=== PATIENT | female | born 1995 | race Two or more races ===

== ENCOUNTER 2017-04-26 11:02 | Emergency (ER) | payer OTHER ==
[~2017-04-26] VITALS: Ht 177.8 cm; Wt 83.9 kg
[2017-04-26 11:25] VITALS: BP 144/85
[2017-04-26] MEDS ORDERED: CARISOPRODOL 350 MG TAB PO ONE (14:15)
[2017-04-26] MEDS ORDERED: CARISOPRODOL 350 MG TAB ONE (14:18)
== END 2017-04-26 14:53 | disposition home or self-care (01) ==
LOC: ER 11:02
DX: M26.602 Left temporomandibular joint disorder, unspecified (principal)
CPT/HCPCS: 70110

== ENCOUNTER 2024-01-27 17:34 | Inpatient (IN) | payer MEDICAID, OTHER ==
[~2024-01-27] VITALS: Ht 180.3 cm; Wt 134.0 kg
[2024-01-27 18:58] LABS: Urine Bacteria None Seen /hpf (None Seen)
[2024-01-27 19:00] LABS: Basophils # (auto) 0.1 10 ^3/uL (0-0.2); Eosinophils # (auto) 0.2 10 ^3/uL (0-0.8); Hematocrit 43.7 % (36.0-46.0); Hemoglobin 14.7 g/dL (12.2-16.2); Lymphocytes # (auto) 2.1 10 ^3/uL (0.4-5.4); Lymphocytes % (auto) 28.4 % (10.0-50.0); Mean Corpuscular Hemoglobin 31.5 pg (28.0-32.0); Mean Corpuscular Hgb Conc. 33.6 g/dL (32.0-36.0); Mean Corpuscular Volume 93.7 fL (80.0-100.0); Monocytes # (auto) 0.9 10 ^3/uL (0-1.3); Monocytes % (auto) 11.8 % (0.0-12.0); Neutrophils # (auto) 4.1 10 ^3/uL (1.6-8.6); Neutrophils % (auto) 55.8 % (37.0-80.0); Nucleated Red Blood Cells % 0.1 %; Platelet Count (auto) 323 10^3/uL (140-450); Red Blood Cells 4.67 10^6/uL (4.0-5.20); Red Cell Distribution Width 13.6 % (11.8-14.3); White Blood Cell 7.3 10^3/uL (4.4-10.8)
--- NOTE | 2024-01-27 19:02 | ED.PDOC ---
GI ASSESSMENT HPI Comments 28y F who presents to the ED for chief complaint of abdominal pain. Pt states she has history of gallstones for the past 1 year and states she has been trying to get surgical consult for gallbladder removal but states she has been having difficulty getting clearance to get per- op EKG done. Pt states she has tried to get EKG done but PCP states she has no appointments and pt could not get any appointments and came to the ED as a last resort. Pt states although she has been having pain to the RUQ for the past 1 year but states the pain has become severe for the past 1 week. Pt rates the pain 10/10, constant, sharp in nature,non-radiating with associated exacerbation of pain after eating and no relieving factors. Pt has associated nausea but denies vomiting, diarrhea, fever, cough, chills, dysuria, hematuria or hematemesis. Pt otherwise denies any other symptoms at this time. Chief Complaint: Abdominal Pain Time Seen by MD: 19:00 Primary Care Provider: FADI Zamora Notes: Medications, Allergies Allergies: Coded Allergies: NO KNOWN ALLERGIES (Unverified , 10/27/15) Information Source: Patient Mode of Arrival: Ambulatory Brought in by: self Past Medical History PAST MEDICAL HISTORY: Denies Surgical History: Denies all surgeries CERTIFIED APPLIANCE SERVICE TECHNICIAN History: No Pertinent CERTIFIED APPLIANCE SERVICE TECHNICIAN History Family History Family History: Unknown Social History Smoker: Non-Smoker Alcohol: Denies ETOH Use Drugs: Denies Drug Use Lives In: Home Constitutional: denies: chills, diaphoresis, fatigue, fever, malaise, sweats, weakness, others EENTM: denies: blurred vision, double vision, ear bleeding, ear discharge, ear drainage, ear pain, ear ringing, eye pain, eye redness, hearing loss, mouth pain , mouth swelling, nasal discharge, nose bleeding, nose congestion, nose pain, photophobia, tearing, throat pain, throat swelling, voice changes, others Respiratory: denies: cough, hemoptysis, orthopnea, SOB at rest, shortness of breath, SOB with excertion, stridor, wheezing, others Cardiovascular: denies: chest pain, dizzy spells, diaphoresis, Dyspnea on exertion, edema, irregular heart beat, left arm pain, lightheadedness, palpitations, PND, syncope, others Gastrointestinal: reports: abdominal pain, nausea; denies: abdomen distended, blood streaked bowels, constipated, diarrhea, dysphagia, difficulty swallowing, hematemesis, melena, poor appetite, poor fluid intake, rectal bleeding, rectal pain, vomiting, others Genitourinary: denies: abnormal vagina bleeding, burning, dyspareunia, dysuria, flank pain, frequency, hematuria, incontinence, pain, , vagina discharge, urgency, others Neurological: denies: dizziness, fainting, headache, left sided numbness, left sided weakness, numbness, paresthesia, pre-existing deficit, right sided numbness, right sided weakness, seizure, speech problems, tingling, tremors, weakness, others Musculoskeletal: denies: back pain, gout, joint pain, joint swelling, muscle pain, muscle stiffness, neck pain, others Integumetry: denies: bruises, change in color, change in hair/nails, dryness, laceration, lesions, lumps, rash, wounds, others Allergic/Immunocompromised: denies: Difficulty Healing, Frequent Infections, Hives, Itching, others Hematologic/Lymphatic: denies: anemia, blood clots, easy bleeding, easy bruising, swollen glands, others Endocrine: denies: excessive hunger, excessive sweating, excessive thirst, excessive urination, flushing, intolerance to cold, intolerance to heat, unexplained weight gain, unexplained weight loss, others Psychiatric: denies: anxiety, bipolar disorder, depression, hopeless, panic disorder, schizophrenia, sleepless, suicidal, others All Other Systems: Reviewed and Negative Physical Exam General Appearance: Moderate Distress HEENT: Normal ENT Inspection, Pharynx Normal, TMs Normal Neck: Full Range of Motion, Non-Tender, Normal, Normal Inspection Respiratory: Chest Non-Tender, Lungs Clear, No Accessory Muscle Use, No Respiratory Distress, Normal Breath Sounds Cardiovascular: No Edema, No JVD, No Murmur, No Gallop, Normal Peripheral Pulses, Regular Rate/Rhythm Breast Exam: Deferred Gastrointestinal: Diffuse, Soft Genitalia: Deferred Pelvic: Deferred Rectal: Deferred Extremities: No calf tenderness, Normal capillary refill, Normal inspection, Normal range of motion, Non-tender, No pedal edema Musculoskeletal : Apperance: Normal Neurologic: Alert, fire chief deputy II-XII nml as Tested, No Motor Deficits, Normal Affect, Normal Mood, No Sensory Deficits Cerebellar Function: Normal Reflexes: Normal Skin: Dry, Normal Color, Warm Peripheral Pulses: 3+ Radial (R), 3+ Radial (L) Lymphatic: No Adenopathy Was a procedure done? Was a procedure done?: No GI differential Dx Differential Diagnosis: Cholecystitis, Constipation, Diverticular disease, Esophagitis, Gastritis/PUD, Gastroenteritis, Pancreatitis, UTI, Dehydration, Bacterial, Viral, Stress Ulcer, Kidney Stone X-Ray, Labs, Meds, VS Vital Signs Date Time Temp Pulse Resp B/P (MAP) Pulse Ox O2 Delivery O2 Flow Rate FiO2 01/27/24 18:00 98.6 86 18 126/65 (85) 96 Lab Test 01/27/24 18:37 01/27/24 18:19 Range/Units White Blood Count 7.3 4.4-10.8 10^3/uL Red Blood Count 4.67 4.0-5.20 10^6/uL Hemoglobin 14.7 12.2-16.2 g/dL Hematocrit 43.7 36.0-46.0 % Mean Corpuscular Volume 93.7 80.0-100.0 fL Mean Corpuscular Hemoglobin 31.5 28.0-32.0 pg Mean Corpuscular Hemoglobin Concent 33.6 32.0-36.0 g/dL Red Cell Distribution Width 13.6 11.8-14.3 % Platelet Count 323 140-450 10^3/uL Mean Platelet Volume 8.7 6.9-10.8 fL Neutrophils (%) (Auto) 55.8 37.0-80.0 % Lymphocytes (%) (Auto) 28.4 10.0-50.0 % Monocytes (%) (Auto) 11.8 0.0-12.0 % Eosinophils (%) (Auto) 3.0 0.0-7.0 % Basophils (%) (Auto) 1.0 0.0-2.0 % Neutrophils # (Auto) 4.1 1.6-8.6 10 ^3/uL Lymphocytes # (Auto) 2.1 0.4-5.4 10 ^3/uL Monocytes # (Auto) 0.9 0-1.3 10 ^3/uL Eosinophils # (Auto) 0.2 0-0.8 10 ^3/uL Basophils # (Auto) 0.1 0-0.2 10 ^3/uL Nucleated Red Blood Cells 0.1 % Sodium Level 141 136-145 mmol/L Potassium Level 3.9 3.5-5.1 mmol/L Chloride Level 108 H 98-107 mmol/L Carbon Dioxide Level 27 20-31 mmol/L Anion Gap 6 5-15 Blood Urea Nitrogen 14 9-23 mg/dL Creatinine 0.81 0.550-1.02 mg/dL Glomerular Filtration Rate Calc 103 >90 mL/min BUN/Creatinine Ratio 17.3 10.0-20.0 Serum Glucose 105 74-106 mg/dL Calcium Level 9.7 8.7-10.4 mg/dL Beta HCG, Quantitative 0.3 L 1.5-4.2 mIU/mL Urine Color Yellow Yellow Urine Clarity Turbid H Clear Urine pH 6.0 5.0-9.0 Urine Specific [place] 1.025 1.001-1.035 Urine Protein Trace H Negative Urine Ketones Negative Negative Urine Blood Negative Negative /uL Urine Nitrite Negative Negative Urine Bilirubin Negative Negative Urine Urobilinogen Normal Negative mg/dL Urine Leukocyte Esterase Negative Negative /uL Urine RBC 6 0 - 4 /hpf Urine WBC 4 0 - 5 /hpf Urine Squamous Epithelial Cells Mod <5 /hpf Urine Bacteria None seen None Seen /hpf Urine Mucus Few None Seen Urine Glucose 1+ H Normal mg/dL ABDOMINAL ULTRASOUND IMPRESSION: 1. Contracted gallbladder. 2. No biliary ductal dilatation or acute cholecystitis. Patient alert. Complaining of abdominal pain after eating. History of gallstones. Vitals stable. Answering all questions. WBC within normal limits. Hemoglobin within normal limits. Possible acute cholecystitis. Ultrasound. Reviewed her history. Was given pain medication. Possibly will need HIDA scan. Explained to the patient. Time of 1ST Reevaluation: 19:30 Reevaluation 1ST: Unchanged Patient Education/Counseling: Diagnosis, Treatment Family Education/Counseling: No Family Present Departure 1 Departure Time of Disposition: 19:25 Impression: Primary Impression: Acute abdominal pain Additional Impression: Gallbladder disease Disposition: ADMITTED INPATIENT Admit to: Med Surg Condition: Guarded Critical Care Note Critical Care Time?: No Stability Stability form required: No Heart Score Heart Score: Heart Score Response (Comments) Value History N/A 0 EKG N/A 0 Age N/A 0 Risk Factors N/A 0 Troponin N/A 0 Total 0 I personally scribed for KENNETH CARMEN MD ([email or web address]) on 01/27/24 at 19:02. Electronically submitted by Walt Hughes ([facility] I personally scribed for KENNETH CARMEN MD ([email or web address]) on 01/27/24 at 19:57. Electronically submitted by Walt Hughes ([facility]). KENNETH CARMEN MD Jan 27, 2024 19:02
[2024-01-27 19:12] LABS: Chloride 108 mmol/L (98-107); Potassium 3.9 mmol/L (3.5-5.1); Sodium 141 mmol/L (136-145)
[2024-01-27 19:13] LABS: Anion Gap 6 (5-15); Calcium 9.7 mg/dL (8.7-10.4); Carbon Dioxide 27 mmol/L (20-31)
[2024-01-27 19:18] LABS: BUN/Creatinine Ratio 17.3 (10.0-20.0); Blood Urea Nitrogen 14 mg/dL (9-23); Glucose 105 mg/dL (74-106)
[2024-01-27 19:35] LABS: Urine Blood Negative /uL (Negative); Urine Clarity Turbid (Clear); Urine Color Yellow (Yellow); Urine Mucus FEW (None Seen); Urine Protein, UAD TRACE (Negative); Urine Specific Gravity 1.025 (1.001-1.035); Urine Urobilinogen Normal (Negative); Urine WBC 4 /hpf (0 - 5)
--- NOTE | 2024-01-27 19:46 | DVH ---
ABDOMINAL ULTRASOUND CLINICAL HISTORY: rosie TECHNIQUE: Multiple grayscale and color Doppler ultrasound images were obtained of the abdomen. WID: COMPARISON: Report from CT abdomen and pelvis dated 01/21/2024 FINDINGS: Liver and Biliary System: Homogeneous echotexture, normal size measuring 15.2 cm. No focal hepatic observations. No intrahepatic bile duct dilatation. The common bile duct are not well visualized due to overlying bowel gas. The gallbladder is contracted. Pancreas: Obscured Spleen: None Kidneys: The right kidney is 10.7 cm . No hydronephrosis, increased echogenicity, shadowing stone, or focal lesion. IMPRESSION: 1. Contracted gallbladder. 2. No biliary ductal dilatation or acute cholecystitis.
[2024-01-27] MEDS ORDERED: MORPHINE SULFATE INJ 2 MG/ml SYRG IV PRN (21:15)
[2024-01-27] MEDS ORDERED: ACETAMINOPHEN 325 MG TAB PO PRN (21:15)
[2024-01-27] MEDS ORDERED: NITROGLYCERIN 0.4 MG SL TAB SL PRN (21:15)
--- NOTE | 2024-01-27 21:16 | DVHHPRES ---
History of Present Illness Resident Creating Document: ISELA YOU RESIDENT History of Present Illness This is a 28-year-old female with past medical history of bipolar disorder presented to the ED with a chief complaint of right upper abdominal pain last 2 days prior to the prior to this admission. According to the patient the pain is colicky in nature ,7/10 radiate to the back aggravated after ingestion of fatty food and associated with nausea. She mentioned she has intermittent biliary colic for last 2 years and was diagnosed with cholelithiasis in [facility] and waiting for referral from the PCP to see the surgeon. Gallbladder ultrasound in the emergency revealed contracted gallbladder with no biliary dilatation and no sign of acute cholecystitis. PCP: Dr. Recio [place] meds: Divalproex sodium 500 mg , 2 tab daily Prazosin 5 mg 1 tab at HS Liparisdone 80 mg, 1 tab daily [place] 8 mg , 1 tab daily Bupropion SR 100mg, 1 tab daily Psych: Bipolar Past Medical History Bipolar Disorder Past Surgical History: None Family History No significant family history Smoke: No ALCOHOL: none Drugs: None Lives: with Family Review of Systems Constitutional: No: Fever, Chills, Sweats, Weakness, Malaise, Other Eyes: No: Pain, Vision change, Conjunctivae inflammation, Eyelid inflammation, Other, Redness ENT: No: Ear pain, Ear discharge, Nose pain, Nose discharge, Nose congestion, Mouth pain, Mouth swelling, Throat pain, Throat swelling, Other Respiratory: No: Cough, Dry, Shortness of breath, SOB with excertion, Wheezing, Hemoptysis, Pleuritic Pain, Sputum, Wheezing, Other Cardiovascular: No: Chest Pain, Palpitations, Orthopnea, Paroxysmal Noc. Dyspnea, Edema, Lt Headedness, Other Gastrointestinal: Nausea, Vomiting, Abdominal Pain; No: Diarrhea, Constipation, Melena, Hematochezia, Other Genitourinary: No Dysuria, No Frequency, No Incontinence, No Hematuria, No Retention, No Other Musculoskeletal: No: other, neck pain, shoulder pain, arm pain, back pain, hand pain, leg pain, foot pain Skin: No: Rash, Lesions, Jaundice, Bruising, Other Neurological: No: Weakness, Numbness, Incoordination, Change in speech, Confusion, Seizures, Other Allergies: Coded Allergies: NO KNOWN ALLERGIES (Unverified , 10/27/15) Medications Current Medications Medications Dose Ordered Sig/Rupesh Route Start Time Stop Time Status Last Admin Dose Admin Sodium Chloride 10 ml Q8HR IV 01/27/24 22:00 UNV Sodium Chloride 1,000 ml @ 120 mls/hr Q8H20M IV 01/27/24 21:15 UNV Acetaminophen 325 mg Q4HP PRN PO 01/27/24 21:15 UNV Ondansetron HCl 4 mg Q4HP PRN IV 01/27/24 21:15 UNV Morphine Sulfate 2 mg Q4HPRN PRN IV 01/27/24 21:15 UNV Nitroglycerin 0.4 mg Q5MINP PRN SL 01/27/24 21:15 UNV Morphine Sulfate 2 mg Q30M PRN IV 01/27/24 21:15 UNV Pantoprazole Sodium 40 mg DAILY IV 01/28/24 10:00 UNV Exam Vital Signs Vital Signs Date Time Temp Pulse Resp B/P (MAP) Pulse Ox O2 Delivery O2 Flow Rate FiO2 01/27/24 20:01 73 14 121/68 (85) 96 01/27/24 18:00 98.6 General Appearance: Alert, Oriented X3, Cooperative, mild distress, Other HEENT: Atraumatic, PERRLA, EOMI, Mucous membr. moist/pink, Other Respiratory: Clear to auscultation, Normal air movement, Other Cardiovascular: Regular rate, Normal S1, Normal S2, No murmurs, Other Abdominal: Normal bowel sounds, Soft, No hepatospenomegaly, No masses, Other (mild tenderness in the rt subcostal region, [place] sign negative) Extremities: No clubbing, No cyanosis, No edema, Normal pulses, No te nderness/swelling Skin: No rashes, No breakdown, No significant lesion Neuro: Normal gait, Normal speech, Strength at 5/5 X4 ext, Normal tone, Sensation intact, Other (Grossly intact cranial nerves) Psych/Mental Status: Mental status NL, Mood NL Labs/Xrays Labs Test 01/27/24 18:37 01/27/24 18:19 Range/Units White Blood Count 7.3 4.4-10.8 10^3/uL Red Blood Count 4.67 4.0-5.20 10^6/uL Hemoglobin 14.7 12.2-16.2 g/dL Hematocrit 43.7 36.0-46.0 % Mean Corpuscular Volume 93.7 80.0-100.0 fL Mean Corpuscular Hemoglobin 31.5 28.0-32.0 pg Mean Corpuscular Hemoglobin Concent 33.6 32.0-36.0 g/dL Red Cell Distribution Width 13.6 11.8-14.3 % Platelet Count 323 140-450 10^3/uL Mean Platelet Volume 8.7 6.9-10.8 fL Neutrophils (%) (Auto) 55.8 37.0-80.0 % Lymphocytes (%) (Auto) 28.4 10.0-50.0 % Monocytes (%) (Auto) 11.8 0.0-12.0 % Eosinophils (%) (Auto) 3.0 0.0-7.0 % Basophils (%) (Auto) 1.0 0.0-2.0 % Neutrophils # (Auto) 4.1 1.6-8.6 10 ^3/uL Lymphocytes # (Auto) 2.1 0.4-5.4 10 ^3/uL Monocytes # (Auto) 0.9 0-1.3 10 ^3/uL Eosinophils # (Auto) 0.2 0-0.8 10 ^3/uL Basophils # (Auto) 0.1 0-0.2 10 ^3/uL Nucleated Red Blood Cells 0.1 % Sodium Level 141 136-145 mmol/L Potassium Level 3.9 3.5-5.1 mmol/L Chloride Level 108 H 98-107 mmol/L Carbon Dioxide Level 27 20-31 mmol/L Anion Gap 6 5-15 Blood Urea Nitrogen 14 9-23 mg/dL Creatinine 0.81 0.550-1.02 mg/dL Glomerular Filtration Rate Calc 103 >90 mL/min BUN/Creatinine Ratio 17.3 10.0-20.0 Serum Glucose 105 74-106 mg/dL Calcium Level 9.7 8.7-10.4 mg/dL Beta HCG, Quantitative 0.3 L 1.5-4.2 mIU/mL Urine Color Yellow Yellow Urine Clarity Turbid H Clear Urine pH 6.0 5.0-9.0 Urine Specific [place] 1.025 1.001-1.035 Urine Protein Trace H Negative Urine Ketones Negative Negative Urine Blood Negative Negative /uL Urine Nitrite Negative Negative Urine Bilirubin Negative Negative Urine Urobilinogen Normal Negative mg/dL Urine Leukocyte Esterase Negative Negative /uL Urine RBC 6 0 - 4 /hpf Urine WBC 4 0 - 5 /hpf Urine Squamous Epithelial Cells Mod <5 /hpf Urine Bacteria None seen None Seen /hpf Urine Mucus Few None Seen Urine Glucose 1+ H Normal mg/dL Assessment/Plan Assessment/Plan Assessment and Plan: # Rt subcostal pain rule out acute cholecystitis - Complaining of intermittent biliary colic for last 2 years associated with nausea and few episodes of vomiting - ultrasound revealed contracted gallbladder with no biliary dilatation and no sign of acute cholecystitis - ordered HIDA scan and CMP - Started IV ceftriaxone 1 g daily and IV Flagyl 500 mg 8 hourly - patient is on clear liquid diet - IV normal saline at 120 mL/hour - Lipase is normal #Vitamin D deficiency - Vitamin D 61787 units Q 7D # Bipolar disorder - Continue home meds # Recent h/o of STD - Ordered hepatitis panel # PUD prophylaxis - Protonix 40 mg daily. Goal of care discussed with the patient for more than 17 minutes full code Plan of treatment discussed with Dr. Hahn Plan discussed with: Patient, Other My Orders Orders - ISELA YOU RESIDENT Procedure Category Date Status Time Admit ADMIT 01/27/24 Transmitted 21:09 Allergies CHRISTIANA 01/27/24 In Process 21:09 Code Status CODE 01/27/24 Transmitted 21:09 Sodium Chloride Lock PHA 01/27/24 Logged (Saline Lock Ns) 22:00 Sodium Chloride 0.9% PHA 01/27/24 Logged 21:15 Acetaminophen Tablet PHA 01/27/24 Logged (Tylenol Tablet) 21:15 Ondansetron Hcl PHA 01/27/24 Logged (Zofran) 21:15 Complete Blood Count LAB 01/28/24 Verified 04:00 Comprehensive LAB 01/28/24 Verified Metabolic Panel 04:00 Clear Liq Diet DIET 01/28/24 Transmitted Breakfast Morphine Sulfate PHA 01/27/24 Logged Injection 21:15 Nitroglycerin PHA 01/27/24 Logged Sublingual (Ntrostat 21:15 Morphine Sulfate PHA 01/27/24 Logged Injection 21:15 Oxygen By Nasal RT 01/27/24 Transmitted Cannula 21:09 Stat Ekg For Chest CHRISTIANA 01/27/24 In Process Pain 21:09 Notify Of Changes CHRISTIANA 01/27/24 In Process From Base 21:09 Molding Utility Worker For CHRISTIANA 01/27/24 In Process 24 Hours 21:09 Emergency Dysrhythmia CHRISTIANA 01/27/24 In Process Protocol 21:09 Rhythm Strips Once [facility] 01/27/24 In Process Every Shift 21:09 Pantoprazole PHA 01/28/24 Logged (Protonix) 10:00 Thyroid Stimulating LAB 01/27/24 Transmitted Hormone 21:14 Comprehensive LAB 01/27/24 Transmitted Hepatitis Panel 21:14 Vitamin B12 LAB 01/27/24 Transmitted 21:14 Vitamin D, 25-Hydroxy LAB 01/27/24 Transmitted 21:14 Date of Service: Jan 27, 2024 Billing Provider: ROSY HAHN MD Common Visit Codes: 72379-IUDIAII INP/OBS CARE (HIGH) ISELA YOU RESIDENT Jan 27, 2024 21:16 ROSY HAHN MD Jan 28, 2024 15:51
[2024-01-27] MEDS: SODIUM CHLOR 0.9% PF (SALINE LOCK) 10ML VIAL/SYR IV SCH (22:00)
[2024-01-27 23:15] VITALS: PULSE 71; RESP 13; O2SAT 98
[2024-01-27] MEDS: SODIUM CHLORIDE 0.9% 1,000 ML IV SCH (23:15)
[2024-01-27] MEDS: ONDANSETRON HCL 4 MG/2 ML VIAL IV PRN (23:16)
[2024-01-27] MEDS: MORPHINE SULFATE INJ 2 MG/ml SYRG IV PRN (23:17)
[2024-01-27] MEDS: cefTRIAXone 1GM/50ML D5W 50 ML IV ONE (23:53)
[2024-01-28] MEDS: metroNIDAZOLE 500MG/100ML 100 ML IV ONE (00:15)
[2024-01-28] MEDS: metroNIDAZOLE 500MG/100ML 100 ML IV SCH (05:30)
[2024-01-28 06:35] LABS: Basophils # (auto) 0.1 10 ^3/uL (0-0.2); Basophils % (auto) 1.1 % (0.0-2.0); Eosinophils # (auto) 0.3 10 ^3/uL (0-0.8); Eosinophils % (auto) 2.9 % (0.0-7.0); Hematocrit 42.1 % (36.0-46.0); Hemoglobin 14.3 g/dL (12.2-16.2); Lymphocytes % (auto) 32.2 % (10.0-50.0); Mean Corpuscular Hemoglobin 32.1 pg (28.0-32.0); Mean Corpuscular Hgb Conc. 33.9 g/dL (32.0-36.0); Mean Corpuscular Volume 94.7 fL (80.0-100.0); Monocytes # (auto) 0.8 10 ^3/uL (0-1.3); Neutrophils # (auto) 5.1 10 ^3/uL (1.6-8.6); Neutrophils % (auto) 54.8 % (37.0-80.0); Nucleated Red Blood Cells % 0.2 %; Platelet Count (auto) 324 10^3/uL (140-450); Red Blood Cells 4.45 10^6/uL (4.0-5.20); Red Cell Distribution Width 13.6 % (11.8-14.3); White Blood Cell 9.3 10^3/uL (4.4-10.8)
[2024-01-28 06:40] LABS: Alanine Aminotransferase 29 U/L (7-40); Alkaline Phosphatase 77 U/L (46-116); Anion Gap 4 (5-15); Aspartate Aminotransferase 24 U/L (13-40); BUN/Creatinine Ratio 16.2 (10.0-20.0); Bilirubin, Total 0.5 mg/dL (0.2-1.0); Blood Urea Nitrogen 11 mg/dL (9-23); Calcium 9.1 mg/dL (8.7-10.4); Carbon Dioxide 27 mmol/L (20-31); Chloride 109 mmol/L (98-107); Glucose 79 mg/dL (74-106); Potassium 4.2 mmol/L (3.5-5.1); Sodium 140 mmol/L (136-145); Total Protein 6.4 g/dL (5.7-8.2)
[2024-01-28 08:00] VITALS: PULSE 72; RESP 16; O2SAT 99
[2024-01-28] MEDS: PANTOPRAZOLE 40 MG/10 ML VIAL INJ IV SCH (09:39)
[2024-01-28] MEDS: ERGOCALCIFEROL 50,000 UNIT(1.25MG) CAP PO SCH (09:39)
[2024-01-28] MEDS: cefTRIAXone 1GM/50ML D5W 50 ML IV SCH (09:40)
--- NOTE | 2024-01-28 10:28 | DVH ---
CT ABDOMEN AND PELVIS WITHOUT CONTRAST CLINICAL HISTORY: ruq pain TECHNIQUE: Multidetector CT of the abdomen was performed from lung bases to pubic symphysis. Imaging was performed without IV contrast. Axial, coronal and sagittal multiplanar reformats were obtained fr om the axial data set by the technologist. Radiation optimization: All CT scans at this facility use at least one of these dose optimization jarret hniques: automated exposure control mA and/or kV adjustment per patient size (includes targeted exam s where dose is matched to clinical indication) or iterative reconstruction. Radiation Dose Information: CT Dose: CTDI volume is 27.56 mGy. Dose-length product is 1446.7 mGy*cm Comparison: None FINDINGS: Evaluation of the solid abdominal viscera is limited without intravenous contrast. The liver, gallbladder, pancreas, kidneys, adrenal glands, and spleen appear within normal limits. There is no gross evidence of abdominal lymphadenopathy. There is no free fluid or free air. The small and large bowel loops demonstrate normal caliber and appear within normal limits. The abdominal aorta and IVC appear within normal limits. The bladder appears unremarkable. The uterus grossly appears unremarkable. There is no gross evidenc e of a pelvic mass or lymphadenopathy. There is no free fluid collection. Lung bases are clear. There is no acute osseous abnormality. IMPRESSION: 1. There is no acute process in the abdomen and pelvis.. HS:Y
[2024-01-28 12:03] LABS: Amphetamine Screen, Urine Neg (NEGATIVE); Barbiturate Scree,Urine Neg (NEGATIVE); Benzodiazephine Screen, Urine Neg (NEGATIVE); Cannabinoid Screen, Urine Neg (NEGATIVE); Cocaine Screen, Urine Neg (NEGATIVE); Opiate Scree,Urine Neg (NEGATIVE); Phencyclidine Screen, Urine Neg (NEGATIVE)
[2024-01-28 12:13] VITALS: BP 117/77; PULSE 68; RESP 18; TEMP 97.4; O2SAT 97
[2024-01-28 14:39] LABS: Hepatitis B Core Total AB Negative (Negative)
[2024-01-28 15:56] LABS: Hepatitis A Total Antibody Positive (Negative)
[2024-01-28 15:57] LABS: Hepatitis B Surface Antibody Negative (Negative); Hepatitis B Surface Antigen Negative (Negative); Hepatitis C Antibody Negative (Negative)
[2024-01-28 16:24] VITALS: BP 121/79; PULSE 77; RESP 16; TEMP 97.3; O2SAT 98
[2024-01-28 18:14] VITALS: BP 103/50; PULSE 75; RESP 19; TEMP 97.7; O2SAT 96
[2024-01-28] MEDS ORDERED: DOXYCYCLINE 100 MG TAB/CAP PO ONE (18:15)
[2024-01-28] MEDS: DOXYCYCLINE 100 MG TAB/CAP PO SCH (18:24)
[2024-01-28] MEDS ORDERED: PRAZ1CAP2 PO (18:32)
[2024-01-28] MEDS ORDERED: TRAZ-228 PO (18:32)
[2024-01-28] MEDS ORDERED: LORA-1120 PO (18:32)
[2024-01-28] MEDS ORDERED: DIVA-91 PO (18:32)
--- NOTE | 2024-01-28 19:16 | DVHPNRES ---
Progress Note Date Seen: Jan 28, 2024 Resident Creating Document: LOW PERERA Has the PT tested + for MRSA If YES, has PT been informed?: No Medical Necessity Reason Pt with a Central, PICC or Fol: No Subjective Review of Systems This is a 28-year-old female with past medical history of bipolar disorder presented to the ED with a chief complaint of right upper abdominal pain since 2 days prior to this admission. According to the patient the pain is colicky in nature ,7/10 radiate to the back aggravated after ingestion of fatty food and associated with nausea. She mentioned she has intermittent biliary colic for last 2 years and was diagnosed with cholelithiasis in [facility] and evaluated by surgeon, and recommended surgery (Dr. Disla). Patient also complains of vaginal discharge, since 2 months. Gallbladder ultrasound in the emergency revealed contracted gallbladder with no biliary dilatation and no sign of acute cholecystitis. Patient was admitted at the line of possible cholecystitis. PCP: Dr. Recio PMHx: Bipolar Disorder, STD 1 year back PSHx: None Family history: Noncontributory Social history: Lives at home with a grandparent. Denies smoking, ex marijuana user(quit 1 year back), denies alcohol use Home medication: Divalproex sodium 500 mg daily, Prazosin 5 mg HS, Liparisdone 80 mg daily, Rameleton 8 mg daily, Bupropion SR 100mg daily Allergic history: Noncontributory General: patient denies fever, fatigue, weaknes, sweating, any recent changes in appetite and weight HEENT: No headaches, visiual changes, hearing loss, tinnitus, nasal congestion and discharge, and sore throat. Cardiovascular: Denies chest pain, palpitations, dyspnea on exertion, orthopnea, or claudication. Respiratory: No cough, and wheezing. Gastrointestinal: Complained of abdominal pain Genitourinary: Reports vaginal discharge Endocrine: No heat or cold intolerance, polydipsia, polyuria, and polyphagia. Neurological: No dizziness, extremity weakness and numbness, tremors, gait disturbance, seizures, and memory impairment. Psychiatric: Denies depression, anxiety,or insomnia. Musculoskeletal: Denies neck pain, stiffness and swelling, back pain, muscle weakness, joint pain, stiffness, swelling, or limited range of motion. Skin: No rashes, itching, skin lesion, changes in hair, nail, skin texture and breast. Hematologic/Lymphatic: Denies easy bruising, bleeding tendencies, or lymph node enlargement. Patient seen and examined at the bedside. Patient complaining of right upper quadrant pain, still grade the pain 7/10. CT abdominopelvic done, shows no abnormalities. HIDA scan was advised. Patient reports: No new complaints Changes from previous H/P or p: No Changes Objective vital signs Vital Sign Date Time Temp Pulse Resp B/P (MAP) Pulse Ox O2 Delivery O2 Flow Rate FiO2 01/28/24 16:24 97.3 77 16 121/79 (93) 98 97.3 01/28/24 08:00 Room Air* 0 21 Total Intake and Output 01/27/24 01/27/24 01/28/24 15:00 23:00 07:00 Intake Total 970 ml Balance 970 ml medications Current Medications Medications Dose Ordered Sig/Rupesh Route Start Time Stop Time Status Last Admin Dose Admin Sodium Chloride 10 ml Q8HR IV 01/27/24 22:00 01/28/24 14:15 10 ML Sodium Chloride 1,000 ml @ 120 mls/hr Q8H20M IV 01/27/24 21:15 01/28/24 14:35 120 MLS/HR Acetaminophen 325 mg Q4HP PRN PO 01/27/24 21:15 Ondansetron HCl 4 mg Q4HP PRN IV 01/27/24 21:15 01/28/24 04:40 4 MG Morphine Sulfate 2 mg Q4HPRN PRN IV 01/27/24 21:15 01/28/24 04:41 2 MG Nitroglycerin 0.4 mg Q5MINP PRN SL 01/27/24 21:15 Morphine Sulfate 2 mg Q30M PRN IV 01/27/24 21:15 Pantoprazole Sodium 40 mg DAILY IV 01/28/24 10:00 01/28/24 09:39 40 MG Ceftriaxone Sodium 50 ml @ 100 mls/hr DAILY@09 IV 01/28/24 09:00 01/28/24 09:40 100 MLS/HR Metronidazole 100 ml @ 100 mls/hr Q8HR IV 01/28/24 06:00 01/28/24 14:36 100 MLS/HR Ergocalciferol 50,000 unit Q7D PO 01/28/24 10:00 Doxycycline Monohydrate 100 mg Q12H PO 01/28/24 18:17 01/28/24 18:24 100 MG Examination General Appearance: A young female, lying on the bed with mild distress, alert, oriented and cooperative HEENT: Atraumatic, PERRLA, EOMI, Mucous membrane moist/pink Respiratory: Clear to auscultation, Normal air movement Cardiovascular: Regular rate, Normal S1, Normal S2, No murmurs, no chest wall tenderness Abdominal: Epigastric and right upper quadrant tenderness, positive Villanueva sign Extremities: No clubbing, No cyanosis, No edema, Normal pulses, No tenderness/swelling Skin: No rashes, No breakdown, No significant lesion Neuro: Normal gait, Normal speech, Strength at 5/5 X4 ext, Normal tone, Sensation intact, Cranial nerves 3-12 NL, Reflexes 2+ Psych/Mental Status: Mental status NL, Mood NL Examination: GENERAL:Normal, HEENT:Normal, NECK:Normal, LUNGS:Normal, CVS:Normal, ABDOMEN:Abnormal, MSK:Normal, SKIN:Normal, NEURO:Normal, :Normal laboratory and microbiology Laboratory Tests 01/28/24 05:17 Test 01/28/24 05:17 Range/Units Serum Glucose 79 74-106 mg/dL Labs and/or images reviewed: Labs reviewed by me, Image(s) reviewed by me Problem List/Assessment/Plan Problem List/Assessment/Plan Rt subcostal pain rule out acute cholecystitis - ultrasound revealed contracted gallbladder with no biliary dilatation and no sign of acute cholecystitis -CT abdominopelvic, normal - HIDA scan - continue ceftriaxone and Flagyl ?STI, cervicitis Check chlamydia and gonorrhea Start ceftriaxone, doxycycline, metronidazole UTI, unspecified location Continue ceftriaxone #Vitamin D deficiency - Vitamin D 02517 units Q 7D # Bipolar disorder - Continue home meds # PUD prophylaxis - Protonix 40 mg daily. Hyperchloremia Monitoring DVT prophylaxis Anticoagulant not indicated, ambulating Code status Full code Plan of treatment discussed with Dr. Hahn Plan discussed with: Patient (RN) Date of Service: Jan 28, 2024 Billing Provider: ROSY HAHN MD Common Visit Codes: [id number] INP/OBS CARE(MOD) LOW PERERA RESDIENT Jan 28, 2024 19:16 ROSY HAHN MD Jan 29, 2024 09:36
[2024-01-28 20:00] VITALS: PULSE 75; RESP 19
[2024-01-28 21:00] VITALS: BP 103/50; PULSE 75; RESP 19; TEMP 97.7; O2SAT 96
[2024-01-29 05:41] VITALS: BP 96/43; PULSE 91; RESP 19; TEMP 97.3; O2SAT 94
[2024-01-29 07:00] VITALS: PULSE 62; RESP 16; O2SAT 95
[2024-01-29 08:00] VITALS: PULSE 62; RESP 16; O2SAT 95
[2024-01-29 09:00] VITALS: BP 99/54; PULSE 62; RESP 16; TEMP 97.7; O2SAT 95
[2024-01-29 12:38] VITALS: BP 120/70; PULSE 90; RESP 16; TEMP 97.6; O2SAT 94
[2024-01-29] MEDS ORDERED: DOX100T PO (13:49)
[2024-01-29 14:37] VITALS: BP 120/70; PULSE 90; RESP 16; TEMP 97.1; O2SAT 94
--- NOTE | 2024-01-29 15:08 | DVH ---
EXAM: NM NM HIDA SCAN History: To rule out cholecystitis Comparison Study: None TECHNIQUE: Following intravenous administration of 7.2 mCi of Tc-99m mebrofenin (Choletec), dynamic sequential images of the right upper abdomen were acquired for 60 minutes. An additional planar image in the lateral right upper quadrant was also obtained. FINDINGS: The liver demonstrates prompt radiotracer uptake with clearance from blood pool. No focal perfusion d efects were noted. There was prompt excretion of the radiotracer into the biliary tree, without evide nce of biliary dilatation or obstruction. Partial filling of the gallbladder at 32/33 minutes post radiotracer administration. At 60 minutes, t he gallbladder remains partially filled. IMPRESSION: 1. No definite evidence for acute cholecystitis.
[2024-01-29] MEDS ORDERED: PRAZOSIN HCL 1 MG CAP PO SCH (18:00)
--- NOTE | 2024-01-29 19:42 | DVHDSRES ---
Discharge Summary Date of Admission Resident Creating Document: LOW PERERA RESDIENT Jan 27, 2024 at 21:09 Date of Discharge: Jan 29, 2024 Admitting Diagnosis Right subcostal pain, to rule out acute cholecystitis Labs/Diagnostic Data: Laboratory Results Test 01/28/24 05:17 01/27/24 18:37 01/27/24 18:19 White Blood Count 9.3 10^3/uL (4.4-10.8) Red Blood Count 4.45 10^6/uL (4.0-5.20) Hemoglobin 14.3 g/dL (12.2-16.2) Hematocrit 42.1 % (36.0-46.0) Mean Corpuscular Volume 94.7 fL (80.0-100.0) Mean Corpuscular Hemoglobin 32.1 pg (28.0-32.0) Mean Corpuscular Hemoglobin Concent 33.9 g/dL (32.0-36.0) Red Cell Distribution Width 13.6 % (11.8-14.3) Platelet Count 324 10^3/uL (140-450) Mean Platelet Volume 8.6 fL (6.9-10.8) Neutrophils (%) (Auto) 54.8 % (37.0-80.0) Lymphocytes (%) (Auto) 32.2 % (10.0-50.0) Monocytes (%) (Auto) 9.0 % (0.0-12.0) Eosinophils (%) (Auto) 2.9 % (0.0-7.0) Basophils (%) (Auto) 1.1 % (0.0-2.0) Neutrophils # (Auto) 5.1 10 ^3/uL (1.6-8.6) Lymphocytes # (Auto) 3.0 10 ^3/uL (0.4-5.4) Monocytes # (Auto) 0.8 10 ^3/uL (0-1.3) Eosinophils # (Auto) 0.3 10 ^3/uL (0-0.8) Basophils # (Auto) 0.1 10 ^3/uL (0-0.2) Nucleated Red Blood Cells 0.2 % Sodium Level 140 mmol/L (136-145) Potassium Level 4.2 mmol/L (3.5-5.1) Chloride Level 109 mmol/L (98-107) Carbon Dioxide Level 27 mmol/L (20-31) Anion Gap 4 (5-15) Blood Urea Nitrogen 11 mg/dL (9-23) Creatinine 0.68 mg/dL (0.550-1.02) Glomerular Filtration Rate Calc 123 mL/min (>90) BUN/Creatinine Ratio 16.2 (10.0-20.0) Serum Glucose 79 mg/dL (74-106) Calcium Level 9.1 mg/dL (8.7-10.4) Total Bilirubin 0.5 mg/dL (0.2-1.0) Aspartate Amino Transferase (AST) 24 U/L (13-40) Alanine Aminotransferase (ALT) 29 U/L (7-40) Alkaline Phosphatase 77 U/L (46-116) Total Protein 6.4 g/dL (5.7-8.2) Albumin 4.0 g/dL (3.2-4.8) Magnesium Level 1.9 mg/dL (1.6-2.6) Lipase 31 U/L (12-53) Vitamin B12 Level 469 pg/mL (211-911) Vitamin D 25-Hydroxy 26.9 ng/mL (30.0-100) Thyroid Stimulating Hormone (TSH) 4.04 uIU/mL (0.55-4.78) Beta HCG, Quantitative 0.3 mIU/mL (1.5-4.2) Hepatitis A Antibody Total Positive (Negative) Hepatitis B Surface Antigen Negative (Negative) Hepatitis B Surface Antibody Negative (Negative) Hepatitis B Core Total Antibody Negative (Negative) Hepatitis C Antibody Negative (Negative) Urine Color Yellow (Yellow) Urine Clarity Turbid (Clear) Urine pH 6.0 (5.0-9.0) Urine Specific Dougherty 1.025 (1.001-1.035) Urine Protein Trace (Negative) Urine Ketones Negative (Negative) Urine Blood Negative /uL (Negative) Urine Nitrite Negative (Negative) Urine Bilirubin Negative (Negative) Urine Urobilinogen Normal mg/dL (Negative) Urine Leukocyte Esterase Negative /uL (Negative) Urine RBC 6 /hpf (0 - 4) Urine WBC 4 /hpf (0 - 5) Urine Squamous Epithelial Cells Mod /hpf (<5) Urine Bacteria None seen /hpf (None Seen) Urine Mucus Few (None Seen) Urine Glucose 1+ mg/dL (Normal) Urine Opiates Screen Neg (NEGATIVE) Urine Fentanyl Screen Neg (NEGATIVE) Urine Barbiturates Screen Neg (NEGATIVE) Urine Phencyclidine Screen Neg (NEGATIVE) Urine Amphetamines Screen Neg (NEGATIVE) Urine Benzodiazepines Screen Neg (NEGATIVE) Urine Cocaine Screen Neg (NEGATIVE) Urine Cannabinoids Screen Neg (NEGATIVE) Other Laboratory Tests 01/28/24 05:17 Brief Hx & Hospital Course: This is a 28-year-old female with a past medical history of bipolar disorder who presented to the ED with a chief complaint of right upper abdominal pain for 2 days prior to this admission. According to the patient, the pain is colicky in nature, rated 7/10, radiates to the back, is aggravated after ingestion of fatty food, and is associated with nausea. She mentioned she has had intermittent biliary colic for the last 2 years and was diagnosed with cholelithiasis at [facility], evaluated by a surgeon, and recommended for surgery (Dr. Disla). The patient also complains of vaginal discharge for the past 2 months. A gallbladder ultrasound in the emergency department revealed a contracted gallbladder with no biliary dilatation and no signs of acute cholecystitis. The patient was admitted for possible cholecystitis. PCP: Dr. Recio PMHx: Bipolar disorder, STD 1 year ago PSHx: None Family history: Noncontributory Social history: Lives at home with a grandparent. Denies smoking, ex-marijuana user (quit 1 year ago), denies alcohol use. Home medication: Divalproex sodium 500 mg daily, Prazosin 5 mg HS, Lurasidone 80 mg daily, Ramelteon 8 mg daily, Bupropion SR 100 mg daily Allergic history: Noncontributory An abdominal ultrasound showed a contracted gallbladder with no biliary ductal dilatation or acute cholecystitis. An abdominal CT scan showed no acute process in the abdomen and pelvis. A HIDA scan also showed no definite evidence of acute cholecystitis. On 01/29/2024, the patient was hemodynamically and medically stable. The patient was feeling better since admission and had no active complaints. Discharge planning was discussed with the patient, and she was recommended to follow up with the PCP within 1 week for renal panel evaluation and vaginal discharge. Condition at Discharge: Good Final Diagnosis/Problems List Intractable abdominal pain History of gallbladder stone Ruled out Cholecystitis STI, cervicitis UTI, unspecified location Vitamin D deficiency Bipolar disorder Hyperchloremia Discharge Disposition: Home Discharge Instruct/Medications Diet: Cardiac 2g Na,low cholest Activity: No Restrictions, As Tolerated Follow Up/Referral: Follow up with the PCP within 1 week after discharge Medications: Continue home medication Discharge Statement: "Patient was advised to return to the ER or call 911 if any headaches, dizziness, shortness of breath, chest pain, abdominal pain, bleeding, fevers, or worsening of medical condition. Patient was counseled about treatment plan, medications, possible side effects, patientverbalized understanding. All questions were answered to the best of my ability. This discharge took greater then 30 minutes in planning, reviewing documentation, counseling the patient, and discussing with other team members." ASSESSMENT ASSESSMENT Assessment Intractable abdominal pain Ruled out cholecystitis Date of Service: Jan 29, 2024 Billing Provider: REE CAMPBELL MD Common Visit Codes: 45486-UXN/OBS DISCH DAY >30min DILMAEMILOUIS RESDIENT Jan 29, 2024 19:42 REE CAMPBELL MD Jan 30, 2024 20:45
[2024-01-29] MEDS ORDERED: LORazepam 0.5 MG TAB PO SCH (22:00)
[2024-01-29] MEDS ORDERED: DIVALPROEX SODIUM 500 MG PO SCH (22:00)
[2024-01-29] MEDS ORDERED: traZODone HCL 50 MG TAB PO SCH (22:00)
== END 2024-01-29 16:08 | disposition home or self-care (01) | DRG 463 ==
LOC: ER 17:34 → OVERFLOW 21:09 → EAST 01-28 18:44
PROVIDERS: ADMIT Hospitalist; ATTEND Hospitalist
DX: N39.0 Urinary tract infection, site not specified (principal); E87.8 Other disorders of electrolyte and fluid balance, not elsewhere classified; A64 Unspecified sexually transmitted disease; K82.9 Disease of gallbladder, unspecified; F31.9 Bipolar disorder, unspecified; E55.9 Vitamin D deficiency, unspecified; N72 Inflammatory disease of cervix uteri; Z79.899 Other long term (current) drug therapy
CPT/HCPCS: 36415; 74176; 76705; 78226; 80048; 80053; 80307; 81001; 82306; 82607; 83690; 83735; 84443; 84702; 85025; 86704; 86706; 86708; 86803; 87340; G0378; J2405; J2470; J3490

== ENCOUNTER 2024-09-27 11:58 | Emergency (ER) | payer MEDICAID ==
[~2024-09-27] VITALS: Ht 180.3 cm; Wt 136.5 kg
[~2024-09-27 11:58] MED LIST: DIVA-91 PO; DOX100T PO; LORA-1120 PO; PRAZ1CAP2 PO; TRAZ-228 PO
--- NOTE | 2024-09-27 13:00 | ED.PDOC ---
History of Present Illness HPI Comments 28-year-old female presents with a chief complaint of bilateral shoulder pain x 4 days. Patient states that her pain is localized to her posterior cervical region, bilaterally, describes as 10/13. Patient mentions that she went to Urgent Care yesterday and was prescribed muscle relaxers and ibuprofen which she states have not helped. Patient reports that the pain radiates down her bilateral arms and creates tingling in her fingers. Right shoulder pain & Left shoulder pain Started x 4 days ago Location bilaterally Radiation down arms bilaterally worsening factors: Movement Range of motion restricted Therapy discharge Denies fevers chills night sweats nausea vomiting redness around the shoulder Denies previous surgeries to the shoulder or significant injury Denies changes, shortness of breath Chief Complaint: Back Pain Time Seen by MD: 12:45 Primary Care Provider: FADI Zamora Notes: Nurses Notes, Medications, Allergies Allergies: Coded Allergies: NO KNOWN ALLERGIES (Unverified , 10/27/15) Home Meds Active Scripts Doxycycline Monohydrate (Doxycycline Monohydrate) 100 Mg Tab, 100 MG PO Q12H for 5 Days, #10 TAB Prov:PEYMAN EDGE RESIDENT 01/29/24 Reported Medications Lorazepam (Lorazepam) 0.5 Mg Tab, 0.5 MG PO HS, TAB 01/28/24 Trazodone Hcl (Trazodone Hcl) 100 Mg Tab, 100 MG PO HS, MG 01/28/24 Prazosin Hcl (Minipres) 1 Mg Cp, 1 CAP PO QPM, #30 CAP 2 Refills 01/28/24 Divalproex Sodium (Depakote) 500 Mg Tab, 2 TAB PO HS, #60 TAB 2 Refills 01/28/24 Information Source: Patient Mode of Arrival: Ambulatory Severity: Moderate Timing: Days Duration: Since onset Prehospital treatment: None Past Medical History PAST MEDICAL HISTORY: Denies Surgical History: Denies all surgeries PHYSICAL PLANT MANAGER History: No Pertinent PHYSICAL PLANT MANAGER History Family History Family History: Unknown Social History Smoker: Non-Smoker Alcohol: Denies ETOH Use Drugs: Denies Drug Use Lives In: Home All Other Systems: Reviewed and Negative ( PER HPI) Physical Exam General Appearance: No Apparent Distress, Normal HEENT: Normal ENT Inspection, Pharynx Normal, TMs Normal, Other (Spurling test neg bilaterally) Neck: Full Range of Motion, Non-Tender, Normal, Normal Inspection Respiratory: Chest Non-Tender, Lungs Clear, No Accessory Muscle Use, No Respiratory Distress, Normal Breath Sounds Cardiovascular: No Murmur, No Gallop, Regular Rate/Rhythm Breast Exam: Deferred Gastrointestinal: No Organomegaly, Non Tender, No Pulsatile Mass, Normal Bowel Sounds, Soft Genitalia: Deferred Pelvic: Deferred Rectal: Deferred Extremities: No calf tenderness, Normal capillary refill, Normal inspection, Normal range of motion, Non-tender, No pedal edema Musculoskeletal : Location: Bilateral Extremity Location: Shoulder Apperance: Normal, Other (Bilateral Shoulders: No gross abnormality on inspection. No shoulder drop visible. No clavicular tenderness on palpation. Palpation tenderness to coracoid process and acromion process. No scapular, supraspinatus, infraspinatus tenderness to touch. Limited flexion passive movement due to pain. Pain with abduction. Apley test Positive) Neurologic: Alert, crester II-XII nml as Tested, No Motor Deficits, Normal Affect, Normal Mood, No Sensory Deficits Cerebellar Function: Normal Reflexes: Normal Skin: Dry, Normal Color, Warm Lymphatic: No Adenopathy Was a procedure done? Was a procedure done?: No Differential Dx Considerations may include: sprain, fracture, radiculopathy X-Ray, Labs, Meds, VS Vital Signs Date Time Temp Pulse Resp B/P (MAP) Pulse Ox O2 Delivery O2 Flow Rate FiO2 09/27/24 13:21 88 17 97 Room Air 09/27/24 13:21 98.7 101 16 124/88 (100) 98 98.7 09/27/24 12:40 97.7 113 17 119/86 (97) 95 97.7 Lab Test 09/27/24 13:15 Range/Units White Blood Count 6.9 4.4-10.8 10^3/uL Red Blood Count 4.80 4.0-5.20 10^6/uL Hemoglobin 14.9 12.2-16.2 g/dL Hematocrit 43.8 36.0-46.0 % Mean Corpuscular Volume 91.2 80.0-100.0 fL Mean Corpuscular Hemoglobin 31.1 28.0-32.0 pg Mean Corpuscular Hemoglobin Concent 34.1 32.0-36.0 g/dL Red Cell Distribution Width 14.5 H 11.8-14.3 % Platelet Count 340 140-450 10^3/uL Mean Platelet Volume 8.2 6.9-10.8 fL Neutrophils (%) (Auto) 55.9 37.0-80.0 % Lymphocytes (%) (Auto) 24.8 10.0-50.0 % Monocytes (%) (Auto) 11.4 0.0-12.0 % Eosinophils (%) (Auto) 6.9 0.0-7.0 % Basophils (%) (Auto) 1.0 0.0-2.0 % Neutrophils # (Auto) 3.8 1.6-8.6 10 ^3/uL Lymphocytes # (Auto) 1.7 0.4-5.4 10 ^3/uL Monocytes # (Auto) 0.8 0-1.3 10 ^3/uL Eosinophils # (Auto) 0.5 0-0.8 10 ^3/uL Basophils # (Auto) 0.1 0-0.2 10 ^3/uL Nucleated Red Blood Cells 0.3 % Sodium Level 141 136-145 mmol/L Potassium Level 4.1 3.5-5.1 mmol/L Chloride Level 107 98-107 mmol/L Carbon Dioxide Level 24 20-31 mmol/L Anion Gap 10 5-15 Blood Urea Nitrogen 5 L 9-23 mg/dL Creatinine 0.75 0.550-1.02 mg/dL Glomerular Filtration Rate Calc 113 >90 mL/min BUN/Creatinine Ratio 6.7 L 10.0-20.0 Serum Glucose 111 H 74-106 mg/dL Calcium Level 9.5 8.7-10.4 mg/dL Current Medications Medications (Trade) Dose Ordered Sig/Rupesh Route Start Time Stop Time Status Last Admin Ketorolac Tromethamine (Toradol Injection) 60 mg ONCE ONCE IM 09/27/24 13:00 09/27/24 13:01 DC 09/27/24 13:14 Methylprednisolone Sodium Succinate (Solu Medrol) 125 mg ONCE ONCE IM 09/27/24 13:00 09/27/24 13:01 DC 09/27/24 13:14 X-Ray, Labs, Meds, VS Comment Patient arrives alert and oriented, ABC's intact, afebrile, vital signs stable, saturating well in room air Labs were ordered. CBC was ordered to exclude anemia, blood loss, or infection. BMP was ordered to exclude electrolyte abnormalities, renal failure, dehydration, hyperglycemia Diagnostic imaging ordered by me and results interpreted by radiology : CERVICAL SPINE X-RAY No acute fracture or subluxation Patient was given: TORADOL AND SOLU-MEDROL IM. Tolerated medications with no adverse reaction. + neck pain radiating to bilateral upper extremities + sensation of numbness. ED Workup: Defer C-Spine imaging given negative by NEXUS criteria Given History, Exam the patient appears to have a cervical radiculopathy. Patient appears to be low risk for complications or other emergent conditions such as anginal equivalent, fernando cervical instability, arterial dissection, osteomyelitis, epidural abscess, central cord syndrome, c-spine fracture, CVA, other spinal emergencies Rx: NSAIDs, outpatient physical therapy evaluation and recommendation for home exercises in the interim Disposition: Discharge. The patient has been given strict return precautions and understands the need to follow up within 48 hours with their primary care provider Patient is stable for discharge at this time. External notes reviewed. Test results and diagnostic imaging interpreted. All diagnostic findings, discharge care, education and instructions provided Follow-up with PCP in 2 to 3 days Patient verbalized understanding and agreed to treatment plan Vital signs stable, afebrile, no acute distress noted Patient ambulatory with strong steady gait Advised to return precautions for any new or worsening symptoms, return to ER immediately for re-evaluation Patient is aware that the purpose of this visit was for an acute medical emergency requiring emergent stabilization. Chronic conditions, including malignancies have not been ruled out. Patient is instructed to follow up with PCP as directed and discharge instructions for continued care and workup. If unable to arrange follow-up, patient is to return to the emergency department for reassessment. Patient (parent or legal guardian if applicable) was given verbal and written discharge instructions and acknowledges understanding. Additional MDM Review of External, Non-ED records: External records reviewed. Discussion with independent historian (EMS, family) history obtained from the patient/parents (if applicable) at bedside Chronic conditions affecting care: None Social determinants of health affecting care: None Consideration of admission (observation or admission): I considered escalation of care to admission for this patient, however given the reassuring workup, the patient is safe for outpatient management. Time of 1ST Reevaluation: 13:15 Reevaluation 1ST: Unchanged Time of 2ND Reevaluation: 14:44 Patient Education/Counseling: Diagnosis, Treatment, Prognosis Family Education/Counseling: No Family Present SEPSIS Sepsis Screen Date sepsis recognized/suspect: Sep 27, 2024 Time Sepsis recognized/suspect: 1207 Recent Procedure: No On Antibiotic Therapy: No Respiratory Rate >20: No Heart Rate >90: Yes Temp<36 C (96.8 F) or >38.3 C: No SBP <90 or MAP <65 mmHG: No New Acute Mental Status Change: No Is the patient on CPAP, BIPAP,: No Physician Orders Cervical Spine 3v (09/27/24 12:53) Vital Signs Date Time Temp Pulse Resp B/P (MAP) Pulse Ox O2 Delivery O2 Flow Rate FiO2 09/27/24 13:21 88 17 97 Room Air 09/27/24 13:21 98.7 101 16 124/88 (100) 98 98.7 09/27/24 12:40 97.7 113 17 119/86 (97) 95 97.7 Laboratory Tests Test 09/27/24 13:15 White Blood Count 6.9 10^3/uL (4.4-10.8) Medications Medications Dose Ordered Sig/Rupesh Route Start Time Stop Time Status Last Admin Dose Admin Ketorolac Tromethamine 60 mg ONCE ONCE IM 09/27/24 13:00 09/27/24 13:01 DC 09/27/24 13:14 Methylprednisolone Sodium Succinate 125 mg ONCE ONCE IM 09/27/24 13:00 09/27/24 13:01 DC 09/27/24 13:14 Departure 1 Departure Time of Disposition: 14:45 Impression: Primary Impression: Cervical radiculopathy Disposition: HOME / SELF CARE / HOMELESS Condition: Fair e-Prescriptions Tramadol HCl (Tramadol HCl) 50 Mg Tab 50 MG PO Q8HP PRN for 5 Days, #15 TAB 0 Refills Prov: BRANDO LFORENCE LOG LOADER HELPER 09/27/24 Prednisone (Prednisone) 20 Mg Tab 60 MG PO DAILY for 5 Days, #15 TAB 0 Refills Prov: BRANDO FLORENCE LOG LOADER HELPER 09/27/24 Critical Care Note Critical Care Time?: No Stability Stability form required: No Heart Score Heart Score: Heart Score Response (Comments) Value History N/A 0 EKG N/A 0 Age N/A 0 Risk Factors N/A 0 Troponin N/A 0 Total 0 I personally scribed for BRANDO FLORENCE LOG LOADER HELPER ([email or web address]) on 09/27/24 at 13:00. Electro nically submitted by Lloyd Samson ([email or web address]). I personally scribed for BRANDO FLORENCE NP ([email or web address]) on 09/27/24 at 13:55. Electronically submitted by Lloyd Samson ([email or web address]). BRANDO FLORENCE NP Sep 27, 2024 13:00
[2024-09-27] MEDS: KETOROLAC TROMETH 60MG/2ML VIAL IM ONE (13:14)
[2024-09-27] MEDS: methylPREDNISolone SOD SUCC 125 MG/2 ML VL IM ONE (13:14)
[2024-09-27 13:21] VITALS: BP 124/88; PULSE 88; RESP 17; TEMP 98.7; O2SAT 97
[2024-09-27 13:31] LABS: Basophils # (auto) 0.1 10 ^3/uL (0-0.2); Eosinophils # (auto) 0.5 10 ^3/uL (0-0.8); Eosinophils % (auto) 6.9 % (0.0-7.0); Hematocrit 43.8 % (36.0-46.0); Hemoglobin 14.9 g/dL (12.2-16.2); Lymphocytes # (auto) 1.7 10 ^3/uL (0.4-5.4); Lymphocytes % (auto) 24.8 % (10.0-50.0); Mean Corpuscular Hemoglobin 31.1 pg (28.0-32.0); Mean Corpuscular Hgb Conc. 34.1 g/dL (32.0-36.0); Mean Corpuscular Volume 91.2 fL (80.0-100.0); Monocytes # (auto) 0.8 10 ^3/uL (0-1.3); Monocytes % (auto) 11.4 % (0.0-12.0); Neutrophils # (auto) 3.8 10 ^3/uL (1.6-8.6); Neutrophils % (auto) 55.9 % (37.0-80.0); Nucleated Red Blood Cells % 0.3 %; Platelet Count (auto) 340 10^3/uL (140-450); Red Cell Distribution Width 14.5 % (11.8-14.3); White Blood Cell 6.9 10^3/uL (4.4-10.8)
--- NOTE | 2024-09-27 13:33 | DVH ---
INDICATION: neck pain. suspect cervical radiculopathy TECHNIQUE: 4 views of the cervical spine were obtained. COMPARISON: None FINDINGS: The cervical spine is visualized from C1-C7. There is loss of the normal cervical lordosis which can be positional. No fractures or subluxations are identified. Multilevel degenerative changes of the spine Alignment appears unremarkable. Prevertebral soft tissues are within normal limits. IMPRESSION: No acute fracture or subluxation
[2024-09-27 13:43] LABS: Anion Gap 10 (5-15); Calcium 9.5 mg/dL (8.7-10.4); Carbon Dioxide 24 mmol/L (20-31); Potassium 4.1 mmol/L (3.5-5.1); Sodium 141 mmol/L (136-145)
[2024-09-27 13:49] LABS: BUN/Creatinine Ratio 6.7 (10.0-20.0)
[2024-09-27 13:52] LABS: Blood Urea Nitrogen 5 mg/dL (9-23); Chloride 107 mmol/L (98-107); Glucose 111 mg/dL (74-106)
[2024-09-27] MEDS ORDERED: TRAM-626 PO (14:46)
[2024-09-27] MEDS ORDERED: PRED20TA2 PO (14:46)
== END 2024-09-27 15:01 | disposition home or self-care (01) ==
LOC: ER 11:58
DX: M54.12 Radiculopathy, cervical region (principal); Z79.899 Other long term (current) drug therapy
CPT/HCPCS: 36415; 72040; 80048; 85025; 96372; 99284; J1885; J2919